=== PATIENT | female | born 1965 | race Caucasian/White ===

== ENCOUNTER 2016-11-15 06:17 | Day surgery (SDC) | payer OTHER ==
[~2016-11-15] VITALS: Ht 165.1 cm; Wt 89.8 kg
[~2016-11-15 06:17] MED LIST: ALBU8.5H3; AMLO-147; ENAL20TA77; FLUT16SP24; HYDR25TA6
[2016-11-15] MEDS ORDERED: LOSARTAN (07:03)
[2016-11-15] MEDS ORDERED: METFORMIN (07:03)
[2016-11-15] MEDS ORDERED: ZOLOFT (07:03)
[2016-11-15] MEDS ORDERED: AMLODOPINE (07:03)
[2016-11-15] MEDS ORDERED: TYLENOL (07:03)
[2016-11-15] MEDS ORDERED: [UNRECOGNIZED DRUG - SUPPLY] (07:03)
[2016-11-15] MEDS ORDERED: BREO (07:03)
[2016-11-15] MEDS ORDERED: OMEPRAZOLE (07:03)
[2016-11-15] MEDS ORDERED: LIDOCAINE 2% (SDV) 5 ML INJ ONE (07:54)
[2016-11-15] MEDS ORDERED: PROPOFOL 60 ML ONE (07:54)
--- NOTE | 2016-11-15 08:22 | OPPN ---
Date/Time of Note Date/Time of Note DATE: 11/15/16 TIME: 08:21 Operative Report Preoperative Diagnosis Screening Postoperative Diagnosis Poor prep and suboptimal examination Small transverse colon polyp was removed Mild diverticulosis of the colon Internal hemorrhoids Operation/Procedure Performed Colonoscopy and biopsy Provider: NASIM CAHNDLER MD Anesthesia Type: MAC Estimated blood loss: none Transfusion Required: no Specimens Colon polyp Grafts/Implants: none Complications: no NASIM CHANDLER MD Nov 15, 2016 08:22
[2016-11-15] MEDS ORDERED: METOCLOPRAMIDE 10 MG INJ ONE (08:54)
--- NOTE | 2016-11-15 08:56 | GILP ---
DATE OF PROCEDURE: 11/15/2016 Room-air O2 [facility] last name room-air OR wall a.m. the ER will 1st name barbara. She had GERD a CEA: Number [id number], 11/11/2004 7. Name. PROCEDURE PERFORMED: Colonoscopy and biopsy. SURGEON: Aubrie Aaron MD. PREOPERATIVE DIAGNOSIS: Screening colonoscopy. POSTOPERATIVE DIAGNOSES: 1. Colonoscopy all the way to the cecum. 2. Poor prep, making the exam suboptimal. 3. Small transverse colon polyp was removed. 4. Mild diverticulosis of the colon. 5. Internal hemorrhoids. INDICATION: Ms. Kaitlin Velasquez is a 51-year-old female patient who was scheduled for screening colonoscopy. The procedure and possible complications were well explained to the patient. She understood and consented to the procedure. DESCRIPTION OF PROCEDURE: Under influence of anesthesia, the colonoscope was carefully introduced in the rectum, and under direct vision, it was advanced all the way to the cecum. FINDINGS: The patient had poor prep making the exam suboptimal. She was noted to have a small transverse colon polyp and it was removed using the biopsy forceps. She had mild diverticulosis of the colon and internal hemorrhoids. She tolerated the procedure very well. There was no complication from the procedure. At the end of procedure, she was awake with stable vital signs and she was discharged home in the care of her family. IMPRESSION: Please see postop diagnoses. PLAN: 1. Await histopathology report. 2. Because of the poor prep and suboptimal nature of the examination, the patient will need repeat colonoscopy with better preparation in 1 year. Dictated By: MD MARIA T Winters/[email or web address] /Document#: [id number]
[2016-11-15 09:01] VITALS: BP 114/62; RESP 14
== END 2016-11-15 11:20 | disposition home or self-care (01) ==
LOC: GIL 06:17
PROVIDERS: ATTEND Internal Medicine Gastroenterology
DX: Z12.11 Encounter for screening for malignant neoplasm of colon (principal); D12.3 Benign neoplasm of transverse colon; K57.90 Diverticulosis of intestine, part unspecified, without perforation or abscess without bleeding; K64.8 Other hemorrhoids; E11.9 Type 2 diabetes mellitus without complications; I10 Essential (primary) hypertension; E78.5 Hyperlipidemia, unspecified; E66.01 Morbid (severe) obesity due to excess calories; Z68.32 Body mass index [BMI] 32.0-32.9, adult; J45.909 Unspecified asthma, uncomplicated
CPT/HCPCS: 45380; 82962; 88305; J2765